=== PATIENT | male | born 1970 | race Caucasian/White ===

== ENCOUNTER 2017-09-29 18:24 | Inpatient (IN) | payer OTHER ==
[~2017-09-29] VITALS: Ht 175.3 cm; Wt 88.0 kg
--- NOTE | 2017-09-29 20:40 | NUR ---
Pre-Assessment Note Pre-Assessment completed on the first floor, in intake office. Pt is a 46 year old male admitting to [facility] for ETOH and Opiate withdrawal. During assessment in intake, pt appears anxious, flushed with clammy skin. VS: BP 142/90, Pulse 127, resp 17, SpO2 96% RA, temp 98. Pt denies chest pain. Pt educated on unit rules and policies: VS taken Q4H, kitchen only to be accessed via staff members and smoking privileges granted by nurse only. Pt also educated that any controlled substance brought upon admission will be wasted and not returned to pt upon discharge. Pt verbalized understanding of education. Admission process to be continued upon arrival to the unit.
[2017-09-29 20:49] VITALS: BP 142/90
--- NOTE | 2017-09-29 20:50 | NUR ---
Admission note Pt is a 46 yo male, A+Ox4, presenting to [facility] for ETOH/Opiate withdrawal. Pt has NKA, is on Full code status, and on Regular diet. Pt is 5'9" in height and 194 LBS. in weight. Pt has medical HX of Heart murmur (childhood) and Left ankle SX (1999). Pt has no Seizure, overdose, cardiac complications, nor delirium HX. Pt has no HX of Psychiatric condition/holds. Pt has no HX of SI/SA/HI. Pt has family HX of Arthritis from Mother, CVA and alcoholism from Father, ADHD from 16 yo son, and Asthma and ADHD from 14 yo son. Pt has no primary care provider. Pt has been drinking alcohol for 31 years (7 years currently), has reached a level of 0.5L-1L Vodka/daily, and last drink was "4 vodka drinks" on 09-29-17 @1930. Pt has been taking [place] 5/325 PO for 2 years, has reached a level of 4 tabs/daily, and last dose was 1 tab on 09-26-17. Pt states, "My typical withdrawal symptoms are n/v/d, tremors, anxiety, agitation, and body aches. Pt is not taking any home medications. Pt has no HX of previous detox/rehab. Pt's last time sober was from 03/2009-09/2010. This was the patient's last time sober. Pt states, "This time i am going to get sober and stay that way, i don't need this in my life anymore." Pt has never been a cigarette smoker. Pt appears intoxicated but in stable condition. Pt is flush in face with moisture noted on forehead. Pt has a scent of alcohol exuding from body. Pt is well groomed and clothing is kept well. Pt is cooperative and compliant with a very cheerful attitude (possibly due to intoxication). Pt states, "I need to stop drinking and my main motivations are my kids." Pt states, "at this point i drink because i am used to it after so many years." Pt states, "After my ex told me that she was going to divorce me, i started drinking with no remorse." Pt considers his parents to be his support system. Pt recalls only consequences being that he got a DUI when he was 19. V/S WNL. B/P=142/90 NN=397 O2= 96% RR= 17 T=98.0. Respirations even and unlabored. Will continue to monitor.
[2017-09-29] MEDS ORDERED: CLONIDINE HCL 0.1 MG TABLET PO PRN (21:00)
[2017-09-29] MEDS ORDERED: IBUPROFEN 600 MG TABLET PO PRN (21:00)
[2017-09-29] MEDS ORDERED: LORAZEPAM 2 MG/1 ML VIAL IM PRN (21:00)
[2017-09-29] MEDS ORDERED: MIRALAX 17 GM POWD.PACK PO PRN (21:00)
[2017-09-29] MEDS ORDERED: MAG HYDROX/AL HYDROX/SIMETH 30 ML LIQUID UDC PO PRN (21:00)
[2017-09-29] MEDS ORDERED: LOPERAMIDE HCL 2 MG CAPSULE PO PRN ×2 (21:00)
[2017-09-29] MEDS ORDERED: ACETAMINOPHEN 325 MG TABLET PO PRN (21:00)
[2017-09-29] MEDS ORDERED: LORAZEPAM 1 MG TABLET PO PRN ×2 (21:00)
[2017-09-29] MEDS ORDERED: MAGNESIUM HYDROXIDE 30 ML LIQUID UDC PO PRN (21:00)
[2017-09-29] MEDS ORDERED: ONDANSETRON 4 MG/2 ML VIAL IM PRN (21:00)
[2017-09-29] MEDS ORDERED: ONDANSETRON ODT 4 MG TAB.RAPDIS SL PRN (21:00)
[2017-09-29] MEDS ORDERED: DICYCLOMINE HCL 20 MG TABLET PO PRN (21:00)
[2017-09-29] MEDS ORDERED: METHOCARBAMOL 750 MG TABLET PO PRN (21:00)
[2017-09-29 21:33] LABS: BASOPHILS # (AUTO) 0.1 K/uL (0.0-8.0); BASOPHILS % (AUTO) 1.3 % (0.0-2.0); EOSINOPHILS # (AUTO) 0.1 K/uL (0.0-0.7); EOSINOPHILS % (AUTO) 1.9 % (0.0-7.0); HEMATOCRIT 49.4 % (36.7-47.1); HEMOGLOBIN 16.9 g/dL (12.5-16.3); LYMPHOCYTES # (AUTO) 1.9 K/uL (20.0-40.0); LYMPHOCYTES % (AUTO) 26.2 % (20.5-51.5); MEAN CORPUSCULAR HEMOGLOBIN 31.8 uug (23.8-33.4); MEAN CORPUSCULAR HGB CONC 34 g/dL (32.5-36.3); MEAN CORPUSCULAR VOLUME 92.9 fL (73.0-96.2); MONOCYTES # (AUTO) 0.9 K/uL (2.0-10.0); MONOCYTES % (AUTO) 11.9 % (0.0-11.0); NEUTROPHILS # (AUTO) 4.2 K/uL (1.8-8.9); NEUTROPHILS % (AUTO) 58.7 % (38.5-71.5); PLATELET COUNT (AUTO) 188 K/uL (152-348); RED BLOOD CELL COUNT(AUTO) 5.31 MIL/uL (4.06-5.63); WHITE BLOOD COUNT (AUTO) 7.2 K/uL (3.6-10.2)
[2017-09-29 21:35] LABS: BILIRUBIN,TOTAL 0.3 mg/dL (0.2-1.0); CREATININE 1.1 mg/dL (0.6-1.3); MAGNESIUM 2.1 mg/dL (1.8-2.4); POTASSIUM 4.6 mmol/L (3.5-5.1); TOTAL PROTEIN, SERUM 8.1 g/dL (6.4-8.2)
[2017-09-29 21:48] LABS: *AMPHETAMINE, URINE NEGATIVE (NEGATIVE); *BARBITURATE, URINE NEGATIVE (NEGATIVE); *CANNABINOID, URINE NEGATIVE (NEGATIVE); *COCCAINE, URINE POSITIVE (NEGATIVE); *OPIATE, URINE NEGATIVE (NEGATIVE); *PHENCYCLIDINE SCREEN,URINE NEGATIVE (NEGATIVE)
[2017-09-29 21:57] LABS: THYROID STIMULATING HORMONE 5.193 mIU/mL (0.358-3.740)
[2017-09-29] MEDS ORDERED: THIAMINE HCL 200 MG/2 ML VIAL IM ONE (23:00)
[2017-09-30 00:24] VITALS: BP 137/84
[2017-09-30 04:17] VITALS: BP 124/79
--- NOTE | 2017-09-30 07:00 | NUR ---
End of shift note Newly admitted patient. Pt was continuously noted with anxiety, agitation, and restlessness. Pt remained in room for majority of shift except to get food from kitchen. Pt remained compliant and cooperative with all aspects of treatment. Pt was not given any PRN medications during shift. Pt is on 5 day Ativan taper to start today. Pt slept for a total of 7 HRS. Last COWS: 6 and Last CIWA: 6 @0400. Respirations even and unlabored. Will endorse to day shift nurse.
--- NOTE | 2017-09-30 07:08 | NUR ---
PRN Subutex 4mg SL for COWS 18, anxiety, agitation, irritability, enlarged pupils, gross tremors, and diaphoresis. Call light within reach. Addendum: 09/30/17 at 1718 by FCO GEORGE RN wrong time
--- NOTE | 2017-09-30 07:40 | NUR ---
START OF SHIFT & PRN Clonidine 0.1mg PO Endorse rcvd from ongoing nurse, client is in bed, he is a/o x 4, he is shirtless, due to diaphoresis overnight, he presents with anxious, agitated mood, he appears restless, inability to stay still, gross tremors, flash face, clammy skin, dry lips, and difficulty concentrating. Client reports feeling very nervous, "Like I have to stay alert at all times." headache, restless legs, insomnia, stomach cramps, no appetite, cold and hot sweats, and tiredness. Encourage client to increase PO fluid to facilitated detox and rehydration. Encourage client to attend group therapy to learn skills to maintain sober. Clonidine 0.1mg PO administered for increased BP 161/112. Last CIWA 6 @ 0400. Client slept 7 hrs. Seizure precautions rendered. Call light within reach.
[2017-09-30 08:02] VITALS: BP 161/112
[2017-09-30] MEDS: LORAZEPAM 1 MG TABLET PO SCH ×4 (08:24→21:46)
[2017-09-30] MEDS: FOLIC ACID 1 MG TABLET PO SCH (08:24)
[2017-09-30] MEDS: MULTIVITAMINS,THERAPEUTIC TABLET PO SCH (08:24)
[2017-09-30] MEDS: THIAMINE HCL 100 MG TABLET PO SCH (08:24)
--- NOTE | 2017-09-30 08:24 | NUR ---
PPD Test administered to L forearm.
--- NOTE | 2017-09-30 08:40 | NUR ---
Reassess PRN Clonidine 0.1mg PO, BP 147/94. Client presents with anxiety, agitation, dilated pupils, sweats, COWS 14, client decline PRN Subutex at this time, stating, "I am not ready for it, I know I will get a lot worse." Risk/benefits discuss with client, reinforcement needed. Call light within reach.
[2017-09-30] MEDS ORDERED: TUBERCULIN,PURIF.PROT.DERIV. 5 TU/0.1 ML TEST ID ONE (09:00)
[2017-09-30] MEDS ORDERED: 5 DAY TAPER OF LORAZEPAM -SERENITY PROTOCOL PO PRN (09:00)
[2017-09-30] MEDS ORDERED: 3 DAY TAPER BUPRENORPHINE -SERENITY PROTOCOL SL PRN (12:45)
[2017-09-30 12:48] VITALS: BP 162/106
[2017-09-30] MEDS: HYDROXYZINE PAMOATE 25 MG CAPSULE PO PRN (12:51)
[2017-09-30] MEDS: BUPRENORPHINE HCL 2 MG TAB.SUBL SL PRN ×2 (12:51→17:08)
--- NOTE | 2017-09-30 12:51 | NUR ---
PRN Subutex 4mg SL, Clonidine 0.1mg PO for COWS 20, anxiety, agitation, irritability, gross tremors, diaphoresis, and increased BP 162/106. Call light within reach.
[2017-09-30] MEDS: CLONIDINE HCL 0.1 MG TABLET PO PRN (13:16)
--- NOTE | 2017-09-30 13:21 | NUR ---
Reassess PRN Subutex 4mg SL, client continues to present with anxiety, agitation, irritability, gross tremors, and diaphoresis, COWS 15. Call light within reach.
--- NOTE | 2017-09-30 13:51 | NUR ---
Reassess PRN Clonidine 0.1mg BP 142/96. Call light within reach.
[2017-09-30 16:55] VITALS: BP 124/89
--- NOTE | 2017-09-30 17:08 | NUR ---
PRN Subutex 4mg SL for COWS 18, anxiety, agitation, irritability, enlarged pupils, gross tremors, and diaphoresis. Call light within reach.
--- NOTE | 2017-09-30 17:38 | NUR ---
Reassess PRN Subutex 4mg SL for COWS 14, client continues to presents with anxiety, agitation, irritability, enlarged pupils, gross tremors, and diaphoresis. Call light within reach.
--- NOTE | 2017-09-30 19:06 | NUR ---
END OF SHIFT Endorse client to incoming nurse, client is in group, he is a/o x 4. Client continues to presents with anxious mood, gross tremors, diaphoresis, flushed face, clammy skin, dry lips, decreased appetite, and difficulty concentrating. PRN administered and noted per protocol. Last CIWA 20 @ 1700 COWS 14 @ 1730. Adequate PO fluid intake 1950mL, void x 3, stool x 3. Client is compliant with group therapy. Call light within reach.
[2017-09-30 20:00] VITALS: BP 130/92
--- NOTE | 2017-09-30 20:00 | NUR ---
Start of Shift Patient noted to be restless, looking flushed, sweaty, and cannot sit still. Patient is sweaty, anxious with tremors and easily gets distracted. Patient c/o restless legs, fatigue and verbalized, I just dont want to move. Educated patient regarding his medications and non-pharmacological ways to relax. Patient is disheveled. odorous and encouraged patient to take a shower. Fall, universal, seizure and safety prec in place. Call light within reach. Latest COWS=12, CIWA=15. Will continue to monitor.
[2017-09-30] MEDS ORDERED: BUPRENORPHINE HCL 2 MG TAB.SUBL SL ONE (21:00)
[2017-10-01] VITALS: BP 126/74
[2017-10-01 04:00] VITALS: BP 130/87
[2017-10-01 05:09] LABS: HEPATITIS B SURFACE AG Negative (Negative)
--- NOTE | 2017-10-01 07:08 | NUR ---
End of Shift Patient continues to be anxious and is flushed. With tremors noted. Patient verbalized being able to sleep better during the shift. Patient is still disheveled, odorous and verbalized that he will take the shower this morning. Encouraged patient to increase oral fluid intake. Fall, universal, seizure and safety prec in place. Call light within reach. Latest COWS=10, CIWA=11, slept for 7 hours. Endorsed to AM shift nurse for continuity of care.
--- NOTE | 2017-10-01 07:30 | NUR ---
START OF SHIFT Client is laying in bed in a position, a/o x 4, client presents with anxious mood, flat affect, flushed face, obvious sweat on forehead and upper lip, goosebump, enlarged pupils, gross tremors, and difficulty concentrating. Client reports feeling somewhat rested after he woke up in the middle of the night disoriented and with a sense of panic, sweaty, shaking, headache, nausea, decreased appetite, abdominal cramps, and fatigue. Encourage client to increase PO fluid to facilitated detox and rehydration. Encourage client to participate in group therapy. Last [facility] 10 @ 0400. Client slept 7 hrs. Seizure precautions rendered. Call light within reach.
[2017-10-01 07:43] LABS: BILIRUBIN,TOTAL 0.5 mg/dL (0.2-1.0); POTASSIUM 3.8 mmol/L (3.5-5.1); TOTAL PROTEIN, SERUM 6.3 g/dL (6.4-8.2)
[2017-10-01 07:52] LABS: THYROID STIMULATING HORMONE 10.784 mIU/mL (0.358-3.740)
[2017-10-01 08:35] VITALS: BP 134/86
[2017-10-01] MEDS: MULTIVITAMINS,THERAPEUTIC TABLET PO SCH (08:40)
[2017-10-01] MEDS: THIAMINE HCL 100 MG TABLET PO SCH (08:40)
[2017-10-01] MEDS: FOLIC ACID 1 MG TABLET PO SCH (08:40)
[2017-10-01] MEDS: LORAZEPAM 1 MG TABLET PO SCH ×3 (08:40→21:37)
[2017-10-01] MEDS: CLONIDINE HCL 0.1 MG TABLET PO PRN ×2 (08:46→12:49)
--- NOTE | 2017-10-01 08:46 | NUR ---
PRN Clonidine 0.1mg PO for increased BP 134/86. Call light within reach.
[2017-10-01] MEDS ORDERED: BUPRENORPHINE HCL 2 MG TAB.SUBL SL ONE ×3 (09:00→21:00)
--- NOTE | 2017-10-01 09:46 | NUR ---
Reassess PRN Clonidine 0.1mg BP 127/82. Call light within reach.
[2017-10-01 12:37] VITALS: BP 126/89
[2017-10-01] MEDS: HYDROXYZINE PAMOATE 25 MG CAPSULE PO PRN (12:49)
--- NOTE | 2017-10-01 12:49 | NUR ---
PRN Clonidine 0.1mg PO, Vistaril 25mg PO for generalized body aches 5/10 and anxiety mb increased P 102, inability to stay still. Call light within reach.
--- NOTE | 2017-10-01 13:49 | NUR ---
Reassess PRN Clonidine 0.1mg & Vistaril 25mg, he verbalizes slight relief from generalized body aches /, client continues to present with anxious mood, P 89. Call light within reach.
[2017-10-01 16:55] VITALS: BP 136/81
[2017-10-01] MEDS ORDERED: METHOCARBAMOL 500 MG TABLET PO PRN (18:30)
--- NOTE | 2017-10-01 19:08 | NUR ---
END OF SHIFT Client in in room, a/o x 4, client continues to presents with anxious mood, flat affect, flushed face, clammy skin, enlarged pupils, gross tremors, and difficulty concentrating. PRN's administered and noted per protocol. Adequate PO fluid intake 2110mL, void x 4, stool x 1. Client consumes 50-75% of meals. Client is compliant with 2/3 of group therapy. Last CIWA 16 @ 1700. Seizure precautions rendered. Call light within reach.
[2017-10-01 20:00] VITALS: BP 135/83
--- NOTE | 2017-10-01 20:00 | NUR ---
Start of Shift Patient appears anxious, with flat affect and with sweating on the forehead. Patient verbalized that he has difficulty concentrating and easily gets distracted. Patient is sweaty, anxious with tremors and easily gets distracted. Patient c/o restless legs, fatigue and intermittent nausea. Patient is disheveled. odorous and encouraged patient to take a shower again. Fall, universal, seizure and safety prec in place. Call light within reach. Latest COWS=13, CIWA=13. Will continue to monitor.
[2017-10-02] VITALS (7 sets, daily range): BP systolic 122–143; BP diastolic 76–96
[2017-10-02] MEDS: LEVOTHYROXINE SODIUM 25 MCG TABLET PO SCH (06:22)
--- NOTE | 2017-10-02 07:07 | NUR ---
End of Shift Patient still noted with restless legs, fatigue and intermittent nausea. Patient is disheveled, observed to be flushed. Patient continues to have gross tremors. Fall, universal, seizure and safety prec in place. Call light within reach. Latest COWS=13, CIWA=12, slept for 4 hours. Endorsed to AM shift nurse for continuity of care.
--- NOTE | 2017-10-02 07:30 | NUR ---
Start of shift Patient 46 y/o male admitted for medically supervised withdrawal of ETOH and opiates. Last COWS 13 and CIWA 12 at 2400. Pt on a 5 day Ativan and 4 day Subutex taper. Tolerating well. Pt anxious ab out discharge day and financial burden of admission. TB test read and is negative. Pt presents with moderate anxiety, mild agitation, gross tremors, restless, flushed face, sweating and chills, generalized body aches and pains. Pt has flat affect and depress mood. Encouraged pt to attend group therapies/sessions to learn new coping skills to prevent relapse. Pt reports NKA, FULL CODE. All safety precautions in place. Call light within reach. Bed lowest lock position. Fall precautions. Will continue to monitor for withdrawal symptoms.
--- NOTE | 2017-10-02 08:00 | NUR ---
COWS 12, CIWA 13. PT presents with flushed face and body, sweats, chills, moderate observable anxiousness, minimal generalized body aches, nasal stuffiness, fine tremors, and yawning.
--- NOTE | 2017-10-02 08:16 | NUR ---
TB test assessment negative on left forearm.
[2017-10-02] MEDS: LORAZEPAM 1 MG TABLET PO SCH ×4 (08:57→21:14)
[2017-10-02] MEDS: MULTIVITAMINS,THERAPEUTIC TABLET PO SCH (08:57)
[2017-10-02] MEDS: THIAMINE HCL 100 MG TABLET PO SCH (08:57)
[2017-10-02] MEDS: FOLIC ACID 1 MG TABLET PO SCH (08:57)
[2017-10-02] MEDS: CLONIDINE HCL 0.1 MG TABLET PO PRN ×2 (08:58→23:26)
[2017-10-02] MEDS ORDERED: BUPRENORPHINE HCL 2 MG TAB.SUBL SL ONE (09:00)
--- NOTE | 2017-10-02 09:01 | NUR ---
PRN CLONIDINE 0.1 MG PO FOR BP 143/93, HR 86
--- NOTE | 2017-10-02 10:02 | NUR ---
REASSESS CLONIDINE- BP IMPROVED 129/88. HR 81. MEDICATION EFFECTIVE.
--- NOTE | 2017-10-02 12:00 | NUR ---
COWS 13, CIWA 16. PT presents with flushed face and body, sweats, chills, moderate observable anxiousness, minimal generalized body aches, nasal stuffiness, fine tremors, and yawning
--- NOTE | 2017-10-02 16:00 | NUR ---
COWS 15, CIWA 17. PT presents with flushed face and body, sweats, chills, moderate observable anxiousness, minimal generalized body aches, nasal stuffiness, gross tremors, and yawning.
--- NOTE | 2017-10-02 17:40 | NUR ---
Client was prompted by therapist to attend daily group therapy sessions. Client related that he would attend the next group.
--- NOTE | 2017-10-02 18:32 | NUR ---
End of shift Patient 46 y/o male admitted for medically supervised withdrawal of ETOH and opiates. Pt on a 5 day Ativan and 4 day Subutex taper and tolerating well. Last COWS 15, CIWA 17. Pt continues to have moderate anxiety, mild agitation, gross tremors, restless, flushed face, sweating and chills, generalized body aches and pains. Pt has flat affect and depress mood throughout the day. PRN given today was Clonidine. Encouraged pt to attend group therapies/sessions to learn new coping skills to prevent relapse. Pt participated in two group therapy sessions today. PO fluids 2883 ml, voids x 5, BM x 2.Pt reports NKA, FULL CODE. All safety precautions in place. Call light within reach. Bed lowest lock position. Fall precautions. Will continue to monitor for withdrawal symptoms. Endorsed to PM shift.
--- NOTE | 2017-10-02 19:43 | NUR ---
START OF SHIFT NOTE Rcvd report from outgoing nurse, pt is currently in his room. Pt is a 46 y/o male A/O to person, place, time, and purpose. Pt was admitted for medically supervised withdrawal from ETOH and Opaites. Pt is not c/o any s/s of withdrawal. Pt is presenting w/ anxiety, gross tremors, flat affect, and sweats. Pt denies any S/I and H/I. PRN Clonidine given for elevated BP, noted effective. Last CIWA 15 and COWS 17 @ 1600. Call light is within reach. Pt will continue to be monitored and needs met.
--- NOTE | 2017-10-02 20:00 | NUR ---
CIWA AND COWS ASSESSMENT CIWA score 16 and COWS score 14. Pt presents w/ anxiety, gross tremors, cramps, body aches, runny nose, restlessness, sweats, hot flashes, and flushing.
[2017-10-02] MEDS: diphenhydrAMINE 50 MG CAPSULE PO PRN (23:25)
--- NOTE | 2017-10-02 23:25 | NUR ---
PRN BENADRYL AND CLONIDINE ADMINISTRATION Benadryl 50mg and Clonidine 0.1mg given for insomnia and anxiety. BP 132/88. CIWA 16. Will reasses pt in 1 hr.
--- NOTE | 2017-10-03 | NUR ---
CIWA AND COWS DEFERRED AND V/S REFUSED Pt is in bed w/ his eyes closed. Pt's respirations are unlabored and even.
--- NOTE | 2017-10-03 00:25 | NUR ---
PRN BENADRYL AND CLONIDINE REASSESSMENT Pt is in bed w/ his eyes closed. Pt's respirations are unlabored and even.
--- NOTE | 2017-10-03 02:52 | NUR ---
MD Communication Attempt: Pt noted with visual and auditory hallucinations. CIWA 23. Pt stated that he could see his "son skating with his friends outside downstairs" and he could "hear a radio in his bathroom". Pt able to be redirected. Attempted to contact on-call MD hotline but no response. Left message and will attempt to call again. Pt in safe condition at this time. Pt placed on frequent checks for observation.
--- NOTE | 2017-10-03 03:23 | NUR ---
MD Communication Attempt: Attempted to contact on-call MD for a second time but not response. Called direct number for on-call MD and left a message. Pt remains in safe condition. Pt currently in bed still awake. Frequent checks being observed.
[2017-10-03] MEDS: CLONIDINE HCL 0.1 MG TABLET PO PRN ×5 (03:44→22:58)
[2017-10-03] MEDS: HYDROXYZINE PAMOATE 25 MG CAPSULE PO PRN ×2 (03:44→17:32)
--- NOTE | 2017-10-03 03:44 | NUR ---
PRN CLONIDINE AND VISTARIL ADMINISTRATION Clonidine 0.1mg given for increased anxiety and sweats. Vistaril 25mg given for increased anxiety. CIWA 21. Will reassess pt in 1 hr.
--- NOTE | 2017-10-03 04:05 | NUR ---
CIWA AND COWS ASSESSMENT CIWA score 23 and COWS score 12. Pt is presenting w/ auditory and visual hallucinations, f tremors, axiety, restlessness, sweats, and body aches.
--- NOTE | 2017-10-03 04:43 | NUR ---
MD Communication: Received callback from . New order for 2mg Ativan PO ONE TIME for increased withdrawal symptoms. May repeat x1 after 2 hours. New orders noted and carried out.
--- NOTE | 2017-10-03 04:44 | NUR ---
PRN CLONIDINE AND VISTARIL REASSESSMENT Pt is awake in bed. CIWA 23. Medication noted ineffective.
[2017-10-03] MEDS ORDERED: LORAZEPAM 1 MG TABLET PO ONE ×2 (04:45→07:00)
--- NOTE | 2017-10-03 07:19 | NUR ---
END OF SHIFT NOTE Rcvd report from outgoing nurse, pt is currently in his room. Pt is a 46 y/o male A/O to person, place, time, and purpose. Pt was admitted for medically supervised withdrawal from ETOH and Opaites. Pt is not c/o any s/s of withdrawal. Pt is presenting w/ anxiety, gross tremors, flat afffect, and sweats. Pt during the night began to have auditory and visual hallucinations. Pt was easily oriented and is aware he is having the hallucinations. PRN Clonidine 0.1mg, and Benadryl 50mg given for insomnia, noted ineffective. PRN Clonidine 0.1mg and Vistaril 25mg given for insomnia, noted ineffective. MD ordered a 1 time does of Ativan 2mg, noted Pt's fluid intake was 1000 ml and he voided 3 times. Pt slept for 3 hrs. Last CIWA 23 and COWS 12 @ 0330. Call light is within reach.
[2017-10-03] MEDS: LEVOTHYROXINE SODIUM 25 MCG TABLET PO SCH (07:26)
--- NOTE | 2017-10-03 07:45 | NUR ---
START OF SHIFT Client is in bed, a/o x 4, client presents with anxious mood, flat affect, flushed face, clammy skin, goosebump, enlarged pupils, gross tremors, and difficulty concentrating. Client reports denies any hallucinations, but recalls having them at night, he though he saw his son outside on the street playing with his skateboard, and he heard music coming out from the side rails. He also reports sweats, shaking, headache, nausea, decreased appetite, abdominal cramps, and fatigue. Encourage client to increase PO fluid to facilitated detox and rehydration. Encourage client to participate in group therapy. Last [facility] 102@ 0400. Client slept 3 hrs. Seizure precautions rendered. Call light within reach. Addendum: 10/03/17 at 1816 by FCO GEORGE RN [place] [id number]
--- NOTE | 2017-10-03 08:00 | NUR ---
COWS 18/CIWA 19 client presents with inability to stay still, fidgety, voice breaks/cracks, intermittent nausea, gross tremors, flushed face, wringing hands, anxiety, agitation, difficulty concentrating, runny nose, sweats, pins and needle feeling on BLE, client is a/o x 4. Client prefers to go down to the patio to smoke a cigarette, before taking his 0900 am medications. Will administered schedule Ativan 1mg PO as soon as he returns back to the unit.
[2017-10-03 08:02] VITALS: BP 132/83
[2017-10-03] MEDS: THIAMINE HCL 100 MG TABLET PO SCH (08:33)
[2017-10-03] MEDS: FOLIC ACID 1 MG TABLET PO SCH (08:33)
[2017-10-03] MEDS: MULTIVITAMINS,THERAPEUTIC TABLET PO SCH (08:33)
[2017-10-03] MEDS: LORAZEPAM 1 MG TABLET PO SCH ×3 (08:34→21:00)
--- NOTE | 2017-10-03 08:34 | NUR ---
PRN Clonidine 0.1mg PO administered for generalized body pain 08/05. call light within reach.
[2017-10-03] MEDS ORDERED: CLONIDINE HCL 0.1 MG TABLET PO ONE (09:30)
--- NOTE | 2017-10-03 09:30 | NUR ---
Nursing Note Client presents with anxious mood, restlessness, agitation, he is having visual hallucinations, he stated, "Do you see the waterfall, the beautiful array of colors, and the pink look, look, right here at the door, do you see it?" Redirect client to reality, help client to verbalize feeling and symptoms, using a calm, acceptance, and active listening. Dr. Chandra is at bedside with client. Call light within reach.
--- NOTE | 2017-10-03 09:34 | NUR ---
Reassess PRN Clonidine 0.1mg, client reports relief from generalized body pain 0/10. call light within reach.
--- NOTE | 2017-10-03 09:35 | NUR ---
One time Clonidine 0.1mg PO administered for anxiety, agitation, increased BP 170/107. Call light within reach.
--- NOTE | 2017-10-03 09:40 | NUR ---
MD Notifications Client is on a 1:1 sitter promoting safety d/t visual hallucinations, client verbalized understanding.
--- NOTE | 2017-10-03 10:35 | NUR ---
Reassess One time Clonidine 0.1mg, client continue to present with anxiety, agitation, BP 161/95. 1:1 sitter at bedside. Call light within reach. Dr. Chandra notified.
--- NOTE | 2017-10-03 10:58 | NUR ---
MD Notification Dr. Chandra made aware of client having visual hallucinations, CIWA 18, increase BP 191/95. She stated, "Please give Ativan 2mg and continue to monitor."
[2017-10-03] MEDS: LORAZEPAM 1 MG TABLET PO PRN ×2 (11:00→16:17)
[2017-10-03] MEDS ORDERED: LORAZEPAM 1 MG TABLET PO PRN (11:00)
--- NOTE | 2017-10-03 11:00 | NUR ---
PRN Ativan 2mg PO administered for CIWA 18 client continues to present with visual hallucinations, he sees pink color splattered on in bedroom door, he saw his room shake and objects move because of an earthquake, he is fidgety, gross tremors, flushed face, rapid and shaky speech, anxiety, agitation, increased BP 161/95, P 88. Client continues on 1:1 sitter for safety. Call light within reach.
[2017-10-03 12:16] VITALS: BP 111/79
--- NOTE | 2017-10-03 12:17 | NUR ---
Reassess PRN Ativan 2mg After group therapy, client requested to go to the outside patio for fresh air. CIWA 20 client continues to present with anxious mood, restlessness, inability to stay still, gross tremors, flushed face, clammy skin, and difficulty concentrating. He denies any visual hallucinations at this time. BP117/79, P 83. Client continues on 1:1 sitter for safety. Call light within reach.
[2017-10-03] MEDS: QUETIAPINE FUMARATE 25 MG TABLET PO PRN ×3 (13:03→20:43)
--- NOTE | 2017-10-03 13:03 | NUR ---
PRN Seroquel 25mg Po administered for psychosis/agitation. Client believes that we have him against his will, redirect client to reality. Will continue to monitor. 1:1 sitter at bedside. Call light within reach.
--- NOTE | 2017-10-03 14:03 | NUR ---
Reassess PRN Seroquel 25mg, client continues to presents with agitation, restlessness, and anxiety, he stated, "I know why I'm here, but please do not hurt me, I know you want to sedate me to cut me." Vitals T 98.2, P 88, BP 138/87, R 18, spO2 @ 99% on RA, pain 0/10. Will continue to monitor. 1:1 sitter at bedside. Call light within reach.
--- NOTE | 2017-10-03 14:20 | NUR ---
MD Notification Dr. Gerber notified of client having a psychotic episode, client told primary nurse, "You are going to cut me aren't you? What procedure are you doing on me? Why can't I just leave and then I can come back tomorrow? Please, nobody knows where I am, and I know you are trying to do something to me. My phone is in the tower and I can not get my wallet." Dr. Gerber gave verbal order of one time Zyprexa 5mg IM for psychosis to CN.
[2017-10-03] MEDS ORDERED: OLANZAPINE 10 MG VIAL IM ONE (14:30)
--- NOTE | 2017-10-03 14:41 | NUR ---
One time Zypreza 5mg IM administered for psychosis, m/b frenzied speaking, restlessness, anxiety, agitation, visual hallucinations, gross tremors. 1:1sitter at bedside. Call light within reach. Will continue to monitor.
--- NOTE | 2017-10-03 15:41 | NUR ---
Reassess One time Zypreza 5mg, client continues to exhibits symptoms of frenzied speaking, restlessness, anxiety, agitation, visual hallucinations, gross tremors. 1:1sitter at bedside. Call light within reach. Will continue to monitor. Dr. Gerber and Dr. Chandra notified, waiting for call back.
[2017-10-03] MEDS ORDERED: QUETIAPINE FUMARATE 25 MG TABLET PO ONE (16:00)
[2017-10-03 16:12] VITALS: BP 174/103
--- NOTE | 2017-10-03 16:17 | NUR ---
PRN Ativan 2mg PO administered for CIWA 23, agitation, restlessness, anxiety, gross tremors, clammy skin, difficulty concentrating, and visual hallucinations. One time Seroquel 50mg for delusion/paranoia. Call light within reach. 1:1 sitter at bedside. Will continue to monitor.
--- NOTE | 2017-10-03 17:17 | NUR ---
Reassess PRN Ativan 2mg CIWA 23, client continues to presents with agitation, restlessness, anxiety, gross tremors, clammy skin, difficulty concentrating, and visual hallucinations. One time Seroquel 50mg, no significant improvement, client continues to present with delusion/paranoia. Call light within reach. 1:1 sitter at bedside. Will continue to monitor. CN notified Dr. Gerber to administer one time Benadryl 25mg PO for sleep, PRN seroquel 25mg PO for psychosis/agitation.
[2017-10-03] MEDS ORDERED: diphenhydrAMINE 25 MG CAP PO PRN (17:30)
--- NOTE | 2017-10-03 17:30 | NUR ---
Client is ambulating on the hallway, he believes there are secret passages, and that his dad is in room 308 having a heart attack. Redirect client to his room, and to reality, using a calm voice. Client back in room with 1:1 sitter. Will continue to monitor.
--- NOTE | 2017-10-03 17:32 | NUR ---
One time Benadryl 25mg PO for sleep, PRN Seroquel 25mg PO for psychosis/agitation, client states, "I see my ex- and my three sisters, can you please tell them to go now, please." PRN Clonidine 0.1mg PO for BP 168/99, Vistaril 25mg PO for anxiety. 1:1 sitter at bedside. Call light within reach. Will continue to monitor.
--- NOTE | 2017-10-03 18:32 | NUR ---
Reassess One time Benadryl 25mg, PRN Seroquel 25mg, PRN Clonidine 0.1mg, Vistaril 25mg. Client is lying in bed, eyes closed, easily startled, VS T 98.3, BP 149/89, P 89, RR 16, spO2 @ 97% on room air, denies any pain, client is a/o to name and date. 1:1 sitter at bedside. Call light within reach. Will continue to monitor.
--- NOTE | 2017-10-03 19:00 | NUR ---
MD Communication Pt continues to be confused and disoriented with hallucinations and delusions. MD contacted. Orders for Valium 10mg one time and to hold 2100 Ativan. Contact MD for any further orders. Remains on 1:1 for safety.
[2017-10-03] MEDS ORDERED: DIAZEPAM 10 MG TABLET PO ONE ×3 (19:15→23:00)
--- NOTE | 2017-10-03 19:15 | NUR ---
END OF SHIFT Endorse client to incoming nurse, client is a/o to name, client continues to present with visual hallucinations, agitation, anxiety, restlessness, gross tremors, flushed face, clammy skin, difficulty concentrating, starting to manifest difficulty with being redirected. 1:1 sitter at bedside for safety. PRN and one time dose of medications administered and noted per protocol. Last COWS 15/CIWA 23 @ 1700. Seizure precautions in place. call light within reach.
--- NOTE | 2017-10-03 19:53 | NUR ---
START OF SHIFT NOTE Rcvd report from outgoing nurse, pt is in his room. Pt is a 46 y/o male A/O to person only. Pt was admitted for medically supervised withdrawal from ETOH and Opiates. Pt was placed on 1:1 observation for safety @ 0935. Pt is experiencing severe auditory and visual hallucinations. Pt is presenting w/ sweats, gross tremors, flushing, and hot flashes. PRN Clonidine 0.1mg given @ 0834 and 0934 for elevated BP (170/107), noted effective. PRN Ativan 2mg given @ 1100 for CIWA 18, noted ineffective. PRN Seroquel 25mg given @ 1303 for psychosis, noted ineffective. PRN Zyprexa 5mg IM given @ 1441, noted ineffective. PRN Benadryl 50mg, Seroquel 25mg, Vistaril 25mg, and Clonidine 0.1mg given @ 1617 for pain, sleep, psychosis, and anxiety/agitation, noted ineffective. Last CIWA 23 and COWS 15 @ 1617. Pt will continue to be monitored and needs met.
[2017-10-03 20:00] VITALS: BP 149/100
--- NOTE | 2017-10-03 20:00 | NUR ---
CIWA AND COWS ASSESSMENT CIWA 37 and COWS 19. Pt is presenting with continuous auditory and visual hallucinations, gross tremors, sweats, agitation, and anxiety.
--- NOTE | 2017-10-03 20:31 | NUR ---
Psychiatrist and MD Communication: Pt still experiencing severe auditory and visual hallucinations. Psychiatrist notified with new order to change 25mg Seroquel PO Q4HPRN to 50mg Seroquel PO Q4HPRN. MD made aware of pt condition. New order per MD for 10mg Valium PO ONE TIME now and to give a dose of 50mg Seroquel PO Q4HPRN now. Orders noted and carried out.
--- NOTE | 2017-10-03 20:43 | NUR ---
PRN SEROQUEL ADMINISTRATION Seroquel 50mg given for agitation and psychosis. CIWA 37. Will reassess pt in 1 hr.
--- NOTE | 2017-10-03 20:45 | NUR ---
ONE TIME ADMINISTRATION VALIUM Valium 10mg given for severe withdrawal symptoms, CIWA 37. Will continue to monitor pt.
--- NOTE | 2017-10-03 21:43 | NUR ---
PRN SEROQUEL REASSESSMENT Pt is still continuing to experience psychosis, through auditory and visual hallucinations. Pt is agitated. Will continue to monitor pt.
--- NOTE | 2017-10-03 22:34 | NUR ---
MD Communication: No change in current pt condition. Pt still experiencing severe hallucinations. MD made aware. New additional order for 10mg Valium PO to be given at 2300 and another 10mg Valium PO to be given at 0200. MD ordered to give doses of 50mg Seroquel PO Q4HPRN at 0000 and 0400. Orders noted and carried out.
[2017-10-03] MEDS: diphenhydrAMINE 50 MG CAPSULE PO PRN (22:55)
--- NOTE | 2017-10-03 22:55 | NUR ---
ONE TIME VALIUM ADMINISTRATION Valium 10mg given per MD order for severe withdrawal symptoms, CIWA 37. Pt havin auditory and visual hallucinations. Pt is on 1:1 observation for safety.
[2017-10-03 22:58] VITALS: BP 126/83
--- NOTE | 2017-10-03 22:58 | NUR ---
PRN BENADRYL AND CLONIDINE ADMINISTRATION Benadryl 50mg and Clonidine 0.1mg given for insomnia (2nd night) and body aches. Will reassess pt in 1 hr.
--- NOTE | 2017-10-03 23:58 | NUR ---
PRN BENADRYL AND CLONIDINE REASSESSMENT Pt is still awake and continuing to have body aches. CIWA 35.
[2017-10-04] VITALS: BP 131/91
--- NOTE | 2017-10-04 | NUR ---
CIWA AND COWS ASSESSMENT CIWA score 35 and COWS score 16. Pt presenting w/ severe auditory and visual hallucinations, sweats, flushing, body aches, anxiety, and agitation.
[2017-10-04] MEDS: QUETIAPINE FUMARATE 25 MG TABLET PO PRN ×4 (00:27→15:26)
[2017-10-04] MEDS: HYDROXYZINE PAMOATE 25 MG CAPSULE PO PRN ×3 (00:27→15:23)
--- NOTE | 2017-10-04 00:27 | NUR ---
PRN SEROQUEL AND VISTARIL ADMINISTRATION Seroquel 50mg and Vistaril 25mg given for insomnia, psychosis, and anxiety. CIWA 35. Will reassess pt in 1 hr.
--- NOTE | 2017-10-04 01:27 | NUR ---
PRN VISTARIL AND SEROQUEL REASSESSMENT Pt is still experiencing auditory and visual hallucinations. Pt is continuing to present w/ agitation.
[2017-10-04] MEDS ORDERED: DIAZEPAM 10 MG TABLET PO ONE (02:00)
--- NOTE | 2017-10-04 02:15 | NUR ---
ONE TIME VALIUM ADMINISTRATION Valium 10mg given per MD for severe withdrawal symptoms, CIWA 35. Pt having auditory and visual hallucinations. Will continue to monitor pat.
[2017-10-04 04:00] VITALS: BP 123/86
[2017-10-04] MEDS: CLONIDINE HCL 0.1 MG TABLET PO PRN ×2 (04:05→22:10)
--- NOTE | 2017-10-04 04:05 | NUR ---
COWS and CIWA Assessment, Clonidine and Seroquel PRN: Pt remains with hallucinations. Pt screamed "my is under the bed!". Pt paces around the room and attempted to climb across the bed. Pt remains with 1:1 sitter and kept safe. CIWA 34 COWS 17. 0.1mg Clonidine PO Q4HPRN given for Anxiety/Agitation. 50mg Seroquel PO Q4HPRN given for Psychosis/Agitation. Will continue to monitor.
--- NOTE | 2017-10-04 05:00 | NUR ---
Clonidine and Seroquel Reassessment: Pt still with severe visual and auditory hallucinations. Pt is more receptive to redirection and is able to calm down and cooperate with staff despite some outbursts. Clonidine and Seroquel slightly effective in managing agitation. Pt remains on 1:1 and kept safe at this time. Will continue to monitor.
[2017-10-04] MEDS: LORAZEPAM 1 MG TABLET PO PRN ×2 (05:43→15:24)
--- NOTE | 2017-10-04 05:43 | NUR ---
Ativan PRN: Pt noted with severe auditory and visual hallucinations. Pt observed with moderate tremors, obvious sweating, moderate anxiety and agitation. CIWA 34. MD okayed to give 2mg Ativan PO Q2HPRN per CIWA score. Will continue to monitor.
[2017-10-04] MEDS: LEVOTHYROXINE SODIUM 50 MCG TABLET PO SCH (06:36)
--- NOTE | 2017-10-04 06:36 | NUR ---
PRN VISTARIL ADMINISTRATION Vistaril 25mg given for anxiety, pt is agitated and restless. Will reassess pt in 1 hr.
--- NOTE | 2017-10-04 06:43 | NUR ---
PRN ATIVAN REASSESSMENT Pt is still continuing to experience continuous and severe auditory and visual hallucinations. CIWA 34.
[2017-10-04] MEDS ORDERED: LEVOTHYROXINE SODIUM 25 MCG TABLET PO SCH (07:00)
--- NOTE | 2017-10-04 07:18 | NUR ---
END OF SHIFT NOTE Endorsed pt to oncoming nurse, pt is in his room. Pt is a 46 y/o male A/O to person only. Pt was admitted for medically supervised withdrawal from ETOH and Opiates. Pt was placed on 1:1 observation for safety @ 0935 on 10/03/17. Pt is experiencing continuous and severe auditory and visual hallucinations. Pt is presenting w/ sweats, gross tremors, flushing, and hot flashes. PRN Seroquel 50mg given @ 2043 for agitation and psychosis. PRN Benadryl 50mg and Clonidine 0.1mg given @ 2258 for insomnia and body aches. PRN Seroquel 50mg and Vistaril 25mg given @ 0027 for agitation, psychosis, and anxiety. PRN Ativan 2mg given @ 0543 for CIWA of 34. All PRN medications noted ineffective. Pt was given one time doses per MD of Valium 10mg @ 1915, 2043, 2255, and 0215. These were also noted ineffective. Last CIWA 34 and COWS 17 @ 0400. PRN Vistaril 25mg given @ 0636 for anxiety, will endorse reassessment to oncoming nurse.
--- NOTE | 2017-10-04 07:48 | NUR ---
START OF SHIFT Pt is a 46 yr old male admitted on 09/29/17 for ETOH/Opiate withdrawal and is on 5 day Ativan taper and 4 day Subutex taper as ordered. Received report from convalescent sitter nurse. Pt was noted with visual, auditory and tactile hallucinations during the night and received multiple PRN's during the night. Medication was ineffective. Pt continues to be noted with visual, auditory and tactile hallucinations. Pt is noted with flushed face. Skin is intact, warm and moist to touch. Pt remains on 1:1 for safety. Pt is on fall and seizure precautions. Call light is within reach. will continue to monitor.
[2017-10-04 08:00] VITALS: BP 125/79
--- NOTE | 2017-10-04 08:00 | NUR ---
COWS score is 14 and CIWA score is 39. Pt is noted with anxiety, agitation, confused to place, time and situation. Pt is noted with gross tremors on BUE and weak gait. Pt is observed restless and is frequently shifting. Addendum: 10/04/17 at 1511 by COREY TEIXEIRA LVN Pt continues to have continuously visual, auditory and tactile hallucinations
[2017-10-04] MEDS: FOLIC ACID 1 MG TABLET PO SCH (08:38)
[2017-10-04] MEDS: THIAMINE HCL 100 MG TABLET PO SCH (08:38)
[2017-10-04] MEDS: MULTIVITAMINS,THERAPEUTIC TABLET PO SCH (08:39)
[2017-10-04] MEDS ORDERED: LORAZEPAM 1 MG TABLET PO SCH (09:00)
[2017-10-04] MEDS ORDERED: 4 DAY TAPER VALIUM-SERENITY PROTOCOL PO PRN (11:00)
--- NOTE | 2017-10-04 11:12 | NUR ---
MD COMMUNICATION Pt continues to be observed with visual, auditory and tactile hallucinations. Pt is noted with anxiety, agitation and confusion to place, time and situation. Report to Dr. Terry with new verbal order to discontinue 5 day Ativan taper and start on 4 day Valium taper starting today. new order noted and carried out.
[2017-10-04] MEDS: DIAZEPAM 10 MG TABLET PO SCH ×3 (11:26→21:02)
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
[2017-10-04 12:00] VITALS: BP 114/71
--- NOTE | 2017-10-04 12:00 | NUR ---
COWS score is 12 and CIWA score is 35. Pt continues to be noted with anxiety, agitation, and confused to place, time and situation. Pt is noted with gross tremors on BUE and weak gait. Pt is observed restless and is frequently shifting. Pt continues to have continuously visual, auditory and tactile hallucinations
--- NOTE | 2017-10-04 12:26 | NUR ---
PRN RE-ASSESSMENT Seroquel 50mg PO PRN was effective. Pt is currently in bed resting with respirations even and unlabored. Pt is noted restless in bed. Safety precautions observed. Will continue to monitor.
--- NOTE | 2017-10-04 15:11 | NUR ---
MD COMMUNICATION Pt was seen and examined by Dr. Terry and received a verbal order for Ativan 2mg PO Q2HPRN for anxiety/agitation. New order was noted and carried out.
--- NOTE | 2017-10-04 15:27 | NUR ---
PRN GIVEN Pt is noted with increase anxiety, agitation, and confused to place, time and situation. Pt is noted with gross tremors on BUE. Pt was given Ativan 2mg PO PRN, Vistaril 25mg PO PRN and Seroquel 50mg PO PRN. Medication was alfredo well. Encouraged increase fluid intake for hydration. Will continue to monitor.
[2017-10-04 16:00] VITALS: BP 121/82
--- NOTE | 2017-10-04 16:00 | NUR ---
COWS score is 16 and CIWA score is 43. Pt continues to be noted with increase anxiety, agitation, and confused to place, time and situation. Pt is noted with gross tremors on BUE and weak gait. Pt is observed restless and unable to stay still. Pt continues to have continuously visual, auditory and tactile hallucinations stating, "I need to remove the dry wall". 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 Section Chief tried to redirected pt to reality but was unsuccessful. Pt continues to be noted with confusion and hallucinations. Dr. Terry is made aware. Will continue to monitor.
--- NOTE | 2017-10-04 16:40 | NUR ---
PRN RE-ASSESSMENT/MD COMMUNICATION Ativan 2mg PO PRN, Seroquel 50mg PO PRN and Vistaril 25mg PO PRN was ineffective. Pt continues to be observed with increase anxiety, agitation and confused. Pt was seen and examined by Dr. Chapa with new order for Zyprexa 5mg Q12H. New order was noted and carried out
[2017-10-04] MEDS ORDERED: OLANZAPINE 5 MG TABLET PO ONE (17:00)
--- NOTE | 2017-10-04 19:07 | NUR ---
END OF SHIFT Pt is a 46 yr old male admitted on 09/29/17 for ETOH/Opiate withdrawal. Pt is confused to place, time and situation. Pt has been observed with continuous visual, auditory and tactile hallucinations. Facial sweats and gross tremors are seen. Dr. Terry was made aware of pt's condition and received new order to discontinue 5 day Ativan taper and start on 4 day Valium taper as ordered. New order was noted and carried out. Pt received Seroquel 50mg PO PRN for psychosis/agitation at 1126 and 1526, Ativan 2mg PO PRN at 1523 and Vistaril 25mg PO at 1523, medication was ineffective. Pt continues to have increase anxiety, agitation, visual and auditory hallucinations and confusion. Pt remains on 1:1 for safety. Pt was encouraged increase fluid intake for hydration. Last COWS score was 16 and CIWA score was 43 at 1600. Pt is on fall and seizure precautions. Call light is within reach. Endorsed to vegetable farm manager nurse to continue with care.
--- NOTE | 2017-10-04 19:30 | NUR ---
START OF SHIFT Pt is a 46 yr old male admitted on 09/29/17 for ETOH/Opiate withdrawal. Pt is A/O to himself only,confused regarding day,date and location.Per report, Pt has been observed with continuous visual, auditory and tactile hallucinations with facial sweats and gross tremors. Dr. Terry was made aware of pt's condition and received new order to discontinue 5 day Ativan taper and start on 4 day Valium taper as ordered. New order was noted and carried out.During the day shift, Pt received PRN med-Seroquel x 2,Ativan 2mg PO x1 and Vistaril 25mg PO x 1.Pt received in room with 1:1 staff at an arm length distance for safety.Pt continues to have increase anxiety, agitation, visual and auditory hallucinations and confusion. Pt remains on 1:1 for safety. PO fluids encouraged. Last COWS score was 16 and CIWA score was 43 at 1600. Pt is on fall and seizure precautions. Call light is within reach.Will continue to monitor for safety.
[2017-10-04 20:00] VITALS: BP 144/94
--- NOTE | 2017-10-04 20:00 | NUR ---
COWS score is 17 and CIWA score is 27. Pt remains anxious and restless,unable to sit still,confused to place, time and situation. Pt continues to have visual, auditory and tactile hallucinations stating, " there are pieces of broken glass on the bed",refusing to get in bed. Redirections to reality are unsuccessful. Pt continues on close monitoring for safety.
[2017-10-04] MEDS: diphenhydrAMINE 50 MG CAPSULE PO PRN (21:02)
[2017-10-04] MEDS: OLANZAPINE 5 MG TABLET PO SCH (21:02)
--- NOTE | 2017-10-04 21:04 | NUR ---
PRN BENADRYL GIVEN ORDERED FOR C/O INSOMNIA.WILL MONITOR FOR EFFECTIVENESS.
--- NOTE | 2017-10-04 22:12 | NUR ---
PRN MED/PRN BENADRYL REASSESSMENT. PRN CLONIDINE GIVEN FOR B/P 144/94.PT REMAINS ANXIOUS,RESTLESS,STILL AWAKE,UNABLE TO SIT STILL.PRN BENADRYL IS NOT EFFECTIVE AT THIS TIME.WILL CONTINUE TO MONITOR.
--- NOTE | 2017-10-04 23:10 | NUR ---
PRN F/U B/P =138/84.PT REMAINS RESTLESS,UNABLE TO SIT STILL BUT IS ABLE TO FOLLOW DIRECTIONS.WILL CONTINUE TO REDIRECT NEEDED AND MONITOR CLOSELY.
--- NOTE | 2017-10-05 | NUR ---
COWS/CIWA DEFERRED. PT OBSERVED RESTING IN BED WITH EYES CLOSED,BREATHING IS EVEN AND NON LABORED,NO S/S OF DISTRESS NOTED.WILL CONTINUE TO MONITOR.
--- NOTE | 2017-10-05 02:00 | NUR ---
COWS score is 18 and CIWA score is 30. Pt remains anxious and restless,unable to sit still,confused and disorganized. Pt continues to have visual, auditory and tactile hallucinations stating, " there is a knife in the bed", constantly picking on the bed frame and controls. Redirections to reality remain unsuccessful. Pt continues to be on close monitoring for safety.
--- NOTE | 2017-10-05 02:05 | NUR ---
MD COMMUNICATION DR POOL IS PRESENT ON THE UNIT.HE IS MADE AWARE OF PT'S CONDITION.NO NEW ORDERS NOTED AT THIS TIME.
[2017-10-05] MEDS: LORAZEPAM 1 MG TABLET PO PRN ×2 (02:11→04:19)
[2017-10-05] MEDS: QUETIAPINE FUMARATE 25 MG TABLET PO PRN (02:11)
--- NOTE | 2017-10-05 02:12 | NUR ---
PRN MEDS PRN SEROQUEL AND ATIVAN GIVEN ORDERED FOR ANXIETY/AGITATION AND PSYCHOSIS.PT IS EXREMELY ANXIOUS AND RESTLESS,GETTING IN AND OUT OF BED,UNABLE TO SIT STILL,CONSTANTLY PICKING ON BED FRAME AND CONTROLS,BELIEVES THAT THERE IS KNIFE IN THERE.PT IS COOPERATIVE WITH MEDICATIONS.WILL MONITOR FOR EFFECTIVENESS.
--- NOTE | 2017-10-05 03:12 | NUR ---
PRN REASSESSMENT SEROQUEL AND ATIVAN GIVEN AN HOUR AGO ARE MINIMALLY EFFECTIVE.PT REMAINS RESTLESS AND ANXIOUS,GETTING IN AND OUT OF BED,CONTINUES TO HAVE VISUAL AND AUDITORY HALLUCINATIONS M/B ATTEMPTING TO GRAB UNSEEN OBJECTS AND MUMBLING INCOHERENTLY TO HIMSELF AND UNSEEN OTHERS.NEEDING CONSTANT REDIRECTIONS.WILL CONTINUE MONITORING.
[2017-10-05 04:00] VITALS: BP_SYST 135; BP_SYST 138; BP_DIAS 95
--- NOTE | 2017-10-05 04:00 | NUR ---
COWS score is 17 and CIWA score is 27. Pt remains anxious and restless,unable to sit still,confused and disorganized. Pt continues to have visual, auditory and tactile hallucinations mumbling incoherently. Constantly picking unseen objects. Redirections to reality remain unsuccessful. Pt continues to be on close monitoring for safety.
--- NOTE | 2017-10-05 04:20 | NUR ---
PRN ATIVAN GIVEN FOR ANXIETY/AGITATION AND PSYCHOSIS.PT REMAINS SAFE WITH 1:1 CLOSE OBSERVATION.WILL CONTINUE TO MONITOR.
--- NOTE | 2017-10-05 06:25 | NUR ---
RN note one-time Zyprexa IM Patient noted to become more agitated and less redirectable. Dr. Chapa notified and MD ordered Zyprexa 5 mg IM one-time. Primary Care Nurse to administer.
[2017-10-05] MEDS ORDERED: OLANZAPINE 10 MG VIAL IM ONE (06:30)
--- NOTE | 2017-10-05 06:41 | NUR ---
ZYPREXA IM ADMINISTRATION PT HAS BEEN ANXIOUS,RESTLESS AND AGITATED MOST OF NIGHT,NOT RESPONDING WELL TO PO MEDICATIONS.DR HERR WAS NOTIFIED.ZYPREXA 5 MG IM GIVEN ORDERED ON RIGHT GLUTEAL.PT WAS COOPERATIVE WITH IM ADMINISTRATION.REMAINS ON CLOSE OBSERVATION WITH BAIT PAINTER FOR SAFETY.
[2017-10-05] MEDS: LEVOTHYROXINE SODIUM 50 MCG TABLET PO SCH (06:43)
--- NOTE | 2017-10-05 07:10 | NUR ---
Start of Shift Termite Treater received report on 46 year old male admitted to [facility] on 09/29/17 for medical management of ETOH and Opiate withdrawals. Pt endorses NKA, full code and regular diet. PMH of heart murmur and appendectomy with no PPH. Pt currently on a Valium taper, having completed the Subutex taper. Pt with moderate tolerance with last COWS 17 and CIWA 27, per NOC report. Pt was admiistered PRN Seroquel(insomnia), Benadryl(insomnia), and Ativan 2mg(anxiety) x2 on NOC, per report. Termite Treater encounters pt in pts room with 2:1 staffing for safety. Pt is oriented to name only, disorganized, speaks in word salad and is confused. Pt is actively RTIS, picking up objects not there, talking to unseen others. Pt is hallucinating about being in war and perseverates on his wallet. Pt looks out window and sees people not there. Pt is not combative, but requires constant redirection. Bed in low position with wheels locked and side rails up x2. Will continue to monitor, support and encourage according to plan of care.
--- NOTE | 2017-10-05 07:11 | NUR ---
IM Re-Assessment Medication ineffective as pt remains disorganized, confused and RTIS with VH and AH, and appears to be TH, although pt can not verbalize such hallucinations due to his state. Pt currently on 2:1 staffing for safety. Will continue to monitor, support and encourage according to plan of care.
--- NOTE | 2017-10-05 07:22 | NUR ---
END OF SHIFT Pt is a 46 yr old male admitted on 09/29/17 for ETOH/Opiate withdrawal. Pt is A/O to himself only,confused regarding day,date and location.Per report, Pt has been continuously observed having visual, auditory and tactile hallucinations with facial sweats and gross tremors.Pt continues on Valium taper as ordered;no adverse reactions noted. Pt received PRN med-Seroquel 50 mg PO x 1,Ativan 2mg PO x2 Benadryl 50 mg PO x 1 and Clonidine x1 as ordered.Pt was also given Zyprexa 5 mg IM X1.Pt continues with 1:1 staff at an arm length distance for safety. PO fluids encouraged. Last COWS score was 17 and CIWA score was 27 at 0400. Pt is on fall and seizure precautions. Call light is within reach.Pt endorsed to day shift nurse in a stable condition. Addendum: 10/05/17 at 0733 by NICOLE SUE RN PT DID NOT SLEEP AT ALL DURING THE NIGHT.FLUID INTAKE WAS 1500 MLS,VOIDED X 2,HAD A B/M X 1.
--- NOTE | 2017-10-05 08:00 | NUR ---
COWS 18/CIWA 37 Pt RTIS, auditory hallucinations, speaking to unseen others. VH, picking at unseen objects. Pt is disoriented and disorganized and unable to process. Pt is diaphoretic, anxious, tremulous(gross) and oriented to name only. Pt requires constant observation for safety, d/t severe withdrawal symptoms. Will continue to monitor, support and encourage according to plan of care.
[2017-10-05 08:28] VITALS: BP 131/75
[2017-10-05] MEDS: THIAMINE HCL 100 MG TABLET PO SCH (08:38)
[2017-10-05] MEDS: DIAZEPAM 5 MG TABLET PO SCH ×4 (08:38→20:35)
[2017-10-05] MEDS: FOLIC ACID 1 MG TABLET PO SCH (08:38)
[2017-10-05] MEDS: MULTIVITAMINS,THERAPEUTIC TABLET PO SCH (08:38)
[2017-10-05] MEDS: OLANZAPINE 5 MG TABLET PO SCH ×2 (08:38→20:35)
[2017-10-05] MEDS ORDERED: HALOPERIDOL LACTATE 5 MG/1 ML VIAL IM STA (08:53)
[2017-10-05] MEDS ORDERED: LORAZEPAM 2 MG/1 ML VIAL IM STA (08:53)
[2017-10-05] MEDS ORDERED: diphenhydrAMINE 50 MG/1 ML VIAL IM STA (08:53)
--- NOTE | 2017-10-05 09:16 | NUR ---
IM Haldol/Ativan/Benadryl Pt RTIS, becoming agitated and irritable. Pt is confused, disorganized and disoriented, oriented to name only. Hall Cleaner received MD order for medication and administered per order, with pt tolerating well. Will continue to monitor, support and encourage according to plan of care.
--- NOTE | 2017-10-05 09:46 | NUR ---
IM Re-Assessment Medication not effective as pt continues to RTIS, agitated and requiring constant redirection and observation. Will continue to monitor, support and encourage according to plan of care.
--- NOTE | 2017-10-05 10:49 | NUR ---
Crisis Team Order Sewer Maintenance Supervisor received order from Dr. Chapa for a crisis team evaluation d/t pt's severe psychosis and danger to himself. Crisis team has been contacted. Will continue to monitor, support and encourage according to plan of care.
--- NOTE | 2017-10-05 10:51 | NUR ---
Nursing Note Pt continues to have hallucinations, confusion, and disorientation. At times he is attempting to leave the unit. His gait is unsteady. He is not responding to medications. Dr. Chapa notified and advised to call crisis team. Zurdo from crisis team contacted and he will come to the [facility] to evaluate patient.
[2017-10-05] MEDS ORDERED: PHENOBARBITAL 60 MG TABLET PO SCH (11:00)
[2017-10-05] MEDS ORDERED: 6 DAY PHENOBARBITAL TAPER -SERENITY PROTOCOL PO PRN (11:15)
--- NOTE | 2017-10-05 11:59 | NUR ---
Medication Held Pt is sleeping after several IM medications. Pt has been psychotic and RTIS. Dr. Terry aware of medication being held. Will continue to monitor, support and encourage according to plan of care.
--- NOTE | 2017-10-05 12:00 | NUR ---
COWS/CIWA Deferred Toilet Products Molder defers assessment due to pt sleeping. Pt has finally responded to IM medication and needs his rest. MD aware of deferment. Will continue to monitor, support and encourage according to plan of care.
--- NOTE | 2017-10-05 12:00 | NUR ---
5150 Pt placed on 5150 for GD by crisis team mixer and blender. Unable to advise pt at this time due to severe psychosis and pt currently sleeping. Will continue to monitor, support and encourage according to plan of care.
--- NOTE | 2017-10-05 13:07 | NUR ---
Behavior Pt is currently resting with eyes closed, even and unlabored respirations noted. 2:1 staff at bedside for safety. Will continue to monitor, support and encourage according to plan of care.
--- NOTE | 2017-10-05 13:59 | NUR ---
Medication Held Steam Clean Machine Operator non-administered medication due to sleep and sedation. MD aware and in agreement. Will continue to monitor, support and encourage according to plan of care.
[2017-10-05 16:30] VITALS: BP 116/78
--- NOTE | 2017-10-05 16:30 | NUR ---
COWS 10/CIWA 17 Pt is re-oriented, A/O x4, slow to process and respond, but appropriate responses. Pt remains diaphoretic, anxious, tremulous and has body aches and stomach cramps. Will continue to monitor, support and encourage according to plan of care.
--- NOTE | 2017-10-05 18:55 | NUR ---
End of Shift Finance Officer provided report on 46 year old male admitted to [facility] on 09/29/17 for medical management of ETOH and Opiate withdrawals. Pt endorses NKA, full code and regular diet. PMH of heart murmur and appendectomy with no PPH. Pt currently on a Valium taper, having completed the Subutex taper. Pt with moderate tolerance with last COWS 10 and CIWA 17 recorded at 1630. Pt was not administered [place] Mmedication this shift. Pt was administered an IM of Haldol/Ativan/Benadryl that was effective after two hours. Pt had been severely RTIS, was disoriented, disorganized and confused. Pt then slept for 5 hours and awoke, A/O x4, although slow to process, but appropriate in response. Pt is tremulous, diaphoretic and complains of muscle aches and stomach cramps. Pt currently resting with :1 staff due to safety and fall risk. Bed in low position with wheels locked and side rails up x2.
[2017-10-05 20:00] VITALS: BP 119/89
--- NOTE | 2017-10-05 20:00 | NUR ---
Start of Shift Note Received a 46 y/o male px, admitted on 09/29/2017 for medically supervised withdrawal from ETOH and [place]. Px is on 5150 and 1 to 1 due to hallucinations and for safety. Px finished 4 day modified Subutex taper and initially 5 day Ativan taper but D/C on 10/04/2017 then started 4 day Valium taper on 10/04/2017. Px is tolerating it. Px had no more hallucinations last time AM shift nurse checked on the px. Last reported COWS 10 and CIWA 17 by AM shift nurse. During the rounds at 1999, px just woke up. Px appears depressed, anxious, and flat affect with poor eye contact. Px is disheveled, unshaven and odorous. Drinks noted on top of his cabinet. Px was asked where is he, px answered correctly. Px was asked if he knows the date or the day of the week today. The px answered correct date but missed the day of the week, px said "it's Wednesday." Px was asked if he knows the time, px answered "it's already night." Px stated My anxiety is 5/10 and I have LBP of 7/10. Bilateral hand tremors noted. Bed on lowest position, side rails up 2x, and call light within reach. Well continue to monitor.
--- NOTE | 2017-10-05 20:35 | NUR ---
PRN Motrin Px received Motrin 600 mg/tab, 1 tab PO as PRN medication for LBP of 10/05. We'll continue to monitor.
--- NOTE | 2017-10-05 21:35 | NUR ---
Reassessment of LBP Px stated that his LBP improved from 7/10 to 5/10 after an hour of administration of Motrin 600 mg PO. We'll continue to monitor.
--- NOTE | 2017-10-05 21:35 | NUR ---
CIWA 13 Px appears anxious and drowsy. Px is oriented. He has bilateral hand tremors, and sweats. We'll continue to monitor.
[2017-10-06] VITALS: BP 97/58
[2017-10-06 04:00] VITALS: BP 92/57
--- NOTE | 2017-10-06 04:00 | NUR ---
COWS and CIWA deferred COWS and CIWA deferred at 0000 and 0400 due to the px is asleep. To assess if the px is awake per doctor's order. We'll continue to monitor.
[2017-10-06] MEDS: LEVOTHYROXINE SODIUM 50 MCG TABLET PO SCH (06:52)
--- NOTE | 2017-10-06 07:10 | NUR ---
End of Shift Note Px is on 5150, 1 to 1 observation due previous hallucinations and for safety. At 2033, Motrin 600 mg given PO for LBP of 7, it was effective. Px has no hallucinations during the shift just confused on day of the week. Px oral intake is 500 ml, no void and no BM. Px slept for 9 hours. Last COWS 9 and CIWA 13. At 0630, px is asleep on bed in fowlers position. Bed on lowest position, side rails up 2x, and call light within reach. Well continue to monitor. Px endorsed to AM shift nurse
--- NOTE | 2017-10-06 07:30 | NUR ---
Start of Shift Human Resources Technician received report on 46 year old male admitted to [facility] on 09/29/17 for medical management of ETOH and Opiate withdrawals. Pt endorses NKA, full code and regular diet. PMH of heart murmur and appendectomy with no PPH. Pt currently on a Valium taper, having completed the Subutex taper. Pt tolerating well, with last COWS 9 and CIWA 13, per NOC report. Pt was administered PRN Motrin(pain) on NOC, per report. Human Resources Technician encounters pt in pts room with 1:1 staffing due to pt being placed on 5150. Pt is A/O x4 and able to make needs known. Pt is calm and cooperative. Linear though process and clear speech pattern. Pt with complaints of stomach cramps, anxiety and restlessness. Bed in low position with wheels locked and side rails up x2. Will continue to monitor, support and encourage according to plan of care.
--- NOTE | 2017-10-06 08:00 | NUR ---
COWS 8/CIWA 15 Pt is diaphoretic, anxious and restless, with complaints of nausea, and a full feeling head. Will continue to monitor, support and encourage according to plan of care.
[2017-10-06 08:35] VITALS: BP 113/74
[2017-10-06] MEDS: FOLIC ACID 1 MG TABLET PO SCH (08:44)
[2017-10-06] MEDS: MULTIVITAMINS,THERAPEUTIC TABLET PO SCH (08:44)
[2017-10-06] MEDS: OLANZAPINE 5 MG TABLET PO SCH ×2 (08:45→20:55)
[2017-10-06] MEDS: THIAMINE HCL 100 MG TABLET PO SCH (08:45)
[2017-10-06] MEDS: DIAZEPAM 5 MG TABLET PO SCH ×3 (08:45→20:55)
[2017-10-06] MEDS ORDERED: PHENOBARBITAL 60 MG TABLET PO SCH (09:00)
--- NOTE | 2017-10-06 12:00 | NUR ---
CIWA 11/COWS 8 Pt experiencing tremors, nausea, anxiety, restlessness and sweating with chills. Will continue to monitor, support and encourage according to plan of care.
[2017-10-06 12:15] VITALS: BP 133/81
[2017-10-06 16:30] VITALS: BP 125/94
--- NOTE | 2017-10-06 16:30 | NUR ---
CIWA 9 /COWS 7 Pt is tremulous, sweating, anxious, restless and complains of body aches. Will continue to monitor, support and encourage according to plan of care.
--- NOTE | 2017-10-06 16:34 | NUR ---
Client was prompted to attend twice daily group counseling sessions.
--- NOTE | 2017-10-06 17:05 | NUR ---
[address] Chapa on the unit and rescinds pt's 5150. 1:1 attendant removed. Pt notified.
--- NOTE | 2017-10-06 19:00 | NUR ---
End of Shift Associate Dean provided report on 46 year old male admitted to [facility] on 09/29/17 for medical management of ETOH and Opiate withdrawals. Pt endorses NKA, full code and regular diet. PMH of heart murmur and appendectomy with no PPH. Pt currently on a Valium taper, having completed the Subutex taper. Last COWS 7 and CIWA 9, recorded at 1630. Pt was not administered any PRN medication this shift.. Pt is A/O x4 and able to make needs known. Pt is calm and cooperative. Linear though process and clear speech pattern. Pt with complaints of stomach cramps, anxiety and restlessness. Pt had his 5150 rescinded by MD today and no longer requires 1:1 staffing. Bed in low position with wheels locked and side rails up x2.
--- NOTE | 2017-10-06 19:45 | NUR ---
Start of Shift Note Received a 46 y/o male px, admitted on 09/29/2017 for medically supervised withdrawal from ETOH and [place]. Px finished 4 day modified Subutex taper and initially 5 day Ativan taper but D/C on 10/04/2017 then started 4 day Valium taper on 10/04/2017. Px is tolerating it. Last reported COWS 7 and CIWA 9 by AM shift nurse. As endorsed, px has no hallucinating episodes, 5150 and 1 to 1 were D/C. During the rounds at 1945, px is awake sitting on the edge of the bed. Px appears disheveled, unshaven and odorous. Drinks noted on top of his cabinet. Px stated I feel much better now. I didnt imagine that I will experience those bad hallucinations by drinking. My anxiety now is 3/10. Bilateral hand tremors noted. Bed on lowest position, side rails up 2x, and call light within reach. Well continue to monitor.
[2017-10-06 20:00] VITALS: BP 137/89
--- NOTE | 2017-10-06 21:55 | NUR ---
CIWA 10 Px is awake on bed watching TV while eating snack. Px is A&Ox4. Px stated "My anxiety is still the same, pretty low. No pain at the moment. Bilateral hand tremors noted. We'll continue to monitor.
[2017-10-07] VITALS: BP 88/53
[2017-10-07 04:00] VITALS: BP 92/56
[2017-10-07] MEDS: LEVOTHYROXINE SODIUM 50 MCG TABLET PO SCH (06:41)
--- NOTE | 2017-10-07 07:10 | NUR ---
End of Shift Note During the shift, px has no reported hallucinations. No PRN medication given. Px oral intake is 800 ml, voided 2x with 1x BM. Px slept for 7.5 hours. Last COWS 7 and CIWA 10. At 0630, px is asleep on bed in fowlers position. Bed on lowest position, side rails up 2x, and call light within reach. Well continue to monitor. Px endorsed to AM shift nurse
--- NOTE | 2017-10-07 07:50 | NUR ---
START OF SHIFT Client is in bed, a/o x 4, client presents with anxious mood, flat affect, flushed face, clammy skin, tremors, and difficulty concentrating. Client reports sweats, shaking, headache, nausea, decreased appetite, abdominal cramps, and fatigue. Client denies any hallucinations, no SI/HI. Encourage client to increase PO fluid to facilitated detox and rehydration. Encourage client to participate in group therapy. Last WA 7 @ 1999. Client slept 7.5 hrs. Seizure precautions rendered. Call light within reach.
[2017-10-07 08:32] VITALS: BP 137/82
[2017-10-07] MEDS: MULTIVITAMINS,THERAPEUTIC TABLET PO SCH (08:43)
[2017-10-07] MEDS: THIAMINE HCL 100 MG TABLET PO SCH (08:43)
[2017-10-07] MEDS: DIAZEPAM 5 MG TABLET PO SCH ×2 (08:43→20:54)
[2017-10-07] MEDS: FOLIC ACID 1 MG TABLET PO SCH (08:43)
[2017-10-07] MEDS: OLANZAPINE 5 MG TABLET PO SCH ×2 (08:43→20:54)
--- NOTE | 2017-10-07 08:45 | NUR ---
CIWA 14/COWS 9 Client presents with anxious mood, agitated, inability to stay still, tremors, clammy skin, intermittent nausea, and restlessness. Diazepam 5mg PO administered. Encourage client to increase PO to facilitate detox. Call light within reach.
[2017-10-07] MEDS ORDERED: PHENOBARBITAL 60 MG TABLET PO SCH (09:00)
[2017-10-07 12:29] VITALS: BP 145/97
[2017-10-07] MEDS: HYDROXYZINE PAMOATE 25 MG CAPSULE PO PRN (12:47)
--- NOTE | 2017-10-07 12:47 | NUR ---
PRN Clonidine 0.1mg PO for BP 145/97, Vistaril 25mg PO for anxiety. Call light within reach.
[2017-10-07] MEDS: CLONIDINE HCL 0.1 MG TABLET PO PRN (12:48)
--- NOTE | 2017-10-07 12:56 | NUR ---
CIWA 14/COWS 9 Client is tremulous, sweating, anxious, agitated, restless, and inability to concentrate. PRN medications administered per protocol. Will continue to monitor. Call light within reach.
--- NOTE | 2017-10-07 13:43 | NUR ---
Client was prompted to attend group counseling sessions daily.
--- NOTE | 2017-10-07 13:47 | NUR ---
Reassess PRN Clonidine 0.1mg BP 127/83, Vistaril 25mg, client appears less anxious, he is able to sit still. Call light within reach.
--- NOTE | 2017-10-07 14:40 | NUR ---
per Dr. Terry to d/c Lorazepam 2mg PRNQ2H PO. CN notified
[2017-10-07 16:07] VITALS: BP 135/89
--- NOTE | 2017-10-07 16:12 | NUR ---
CIWA 12/ 7 Client continues to present with anxiety, agitation, tremors, flushed face, difficulty staying still, [place], moist skin, and difficulty concentrating. Client declines Tylenol or Motrin for [place], will continue to monitor. Call light within reach.
--- NOTE | 2017-10-07 19:14 | NUR ---
END OF SHIFT Endorse client to incoming nurse, client is in bed, a/o x 4, client continues to present with anxiety, agitation, flat affect, clammy skin, tremors, abdominal cramps, fatigue, and difficulty concentrating. Client denies hallucinations and SI/HI. PRN administered and noted per protocol. Client was compliant with 2/3 group therapy. Client consumes 75% of meals. Adequate PO fluid intake 1465mL, void x 5, stool x 1. Last CIWA 7 @ 1600. Seizure precautions rendered. Call light within reach.
--- NOTE | 2017-10-07 19:15 | NUR ---
Start of Shift Note: Patient is a 46 y.o male admitted on 09/29/17 for medically supervised withdrawal from ETOH and [place] use. Patient is alert & oriented x4. He presented with 4/10 generalized body aches, fine tremors, barely sweating, anxiety & restlessness. Pt completed his Subutex taper and is on his day 5 of his 5-day Valium taper and tolerating well. Pt received PRN Clonidine & Vistaril during day shift and were effective per report. Last COWS 7 CIWA 11. Encourage pt to increase fluid intake. Educated pt of current plan of care for the night and medication regimen. All needs attended & met. Safety measures in place. Will continue to monitor patient.
[2017-10-07 20:00] VITALS: BP 132/80
[2017-10-07] MEDS: diphenhydrAMINE 50 MG CAPSULE PO PRN (20:53)
--- NOTE | 2017-10-07 20:53 | NUR ---
PRN Benadryl Patient requesting for medication to help him sleep. Per pt, he slept in the afternoon for 3 hours and he will probably have trouble sleeping tonight. PRN Benadryl administered as ordered. Safety measures in place. Will continue to monitor patient.
--- NOTE | 2017-10-07 21:53 | NUR ---
PRN Reassessment PRN effective. Patient asleep in bed and appears comfortable. Respiration even & unlabored. Safety measures in place. Will continue to monitor patient.
[2017-10-08] VITALS: BP 113/73
[2017-10-08 04:00] VITALS: BP 121/78
[2017-10-08] MEDS: LEVOTHYROXINE SODIUM 50 MCG TABLET PO SCH (06:43)
--- NOTE | 2017-10-08 07:11 | NUR ---
End of Shift Note: Patient is a 46 y.i male admitted on 09/29/17 for medically supervised withdrawal from ETOH and [place] use. During my shift, he presented with myalgia, fine tremors, sweating, anxiety & restlessness. He completed his Subutex & Valium taper and he tolerated medications well. He remained in his room throughout the shift. Last COWS is 6 CIWA 9. No PRN medications received during my shift. Continue to encourage pt to increase fluid intake for hydration and to attend group activities to learn coping skills. He slept for a total of 6 hours. Fluid intake 1000 ml, Voided 1x with no bowel movement. All needs attended. Safety measures in place. Will endorse pt to day shift nurse.
--- NOTE | 2017-10-08 07:30 | NUR ---
Start of Shift Viscera Washer received report on 46 year old male admitted to [facility] on 09/29/17 for medical management of ETOH and Opiate withdrawals. Pt endorses NKA, full code and regular diet. PMH of heart murmur and appendectomy with no PPH. Pt has completed Subutex and Valium tapers and is preparing for discharge tomorrow morning. With last COWS 6 and CIWA 9, per NOC report. Pt was not administered any PRN medication on NOC, per report. Viscera Washer encounters pt in pts room Pt is A/O x4 and able to make needs known. Pt is calm and cooperative. Linear though process and clear speech pattern. Pt with complaints of stomach cramps, anxiety and restlessness. Bed in low position with wheels locked and side rails up x2. Will continue to monitor, support and encourage according to plan of care.
--- NOTE | 2017-10-08 08:00 | NUR ---
COWS 6/CIWA 7 Pt is anxious and restless, with complaints of body aches and nausea. Will continue to monitor, support and encourage according to plan of care.
[2017-10-08] MEDS: OLANZAPINE 5 MG TABLET PO SCH (08:06)
[2017-10-08] MEDS: FOLIC ACID 1 MG TABLET PO SCH (08:06)
[2017-10-08] MEDS: THIAMINE HCL 100 MG TABLET PO SCH (08:06)
[2017-10-08] MEDS: MULTIVITAMINS,THERAPEUTIC TABLET PO SCH (08:06)
[2017-10-08] MEDS: CLONIDINE HCL 0.1 MG TABLET PO PRN (08:06)
--- NOTE | 2017-10-08 08:06 | NUR ---
PRN Clonidine Pt's BP on routine VS check is 161/97. Genomics Scientist administered medication, with tolerating well. Will continue to monitor, support and encourage according to plan of care.
[2017-10-08 08:30] VITALS: BP 161/97
[2017-10-08] MEDS ORDERED: PHENOBARBITAL 60 MG TABLET PO SCH (09:00)
--- NOTE | 2017-10-08 09:15 | NUR ---
PRN Re-Assessment BP on re-check. 111/76 with P of 71. Medication effective. Will continue to monitor, support and encourage according to plan of care.
--- NOTE | 2017-10-08 12:00 | NUR ---
COWS 7/CIWA 8 Pt is anxious and restless. Tremulous. Will continue to monitor, support and encourage according to plan of care.
[2017-10-08 12:15] VITALS: BP 139/85
--- NOTE | 2017-10-08 16:00 | NUR ---
CIWA 9/COWS 7 Pt is anxious and restless, moist skin and complains of nausea. Will continue to monitor, support and encourage according to plan of care.
[2017-10-08 16:50] VITALS: BP 126/84
--- NOTE | 2017-10-08 19:07 | NUR ---
End of Shift Shellfish Shucker received report on 46 year old male admitted to [facility] on 09/29/17 for medical management of ETOH and Opiate withdrawals. Pt endorses NKA, full code and regular diet. PMH of heart murmur and appendectomy with no PPH. Pt has completed Subutex and Valium tapers and is preparing for discharge tomorrow morning. With last COWS 7 and CIWA 9 with complaints of nausea and chills. Pt is anxious and restless. Pt is able to focus on task and is calm and cooperative. Pt was administered Clonidine(HTN), medication effective. Bed in low position with wheels locked and side rails up x2.
--- NOTE | 2017-10-08 19:15 | NUR ---
Start of Shift Note: Patient is a 46 y.o male admitted on 09/29/17 for medically supervised withdrawal from ETOH and [place] use. Patient is alert & oriented x4. He appears anxious and irritable. He completed his Subutex taper and is scheduled to be discharged tomorrow. Pt received PRN Clonidine day shift and was effective per report. Last COWS 7 CIWA 9. Encourage pt to increase fluid intake. Educated pt of current plan of care for the night and medication regimen. All needs attended & met. Safety measures in place. Will continue to monitor patient.
[2017-10-08 20:00] VITALS: BP 140/88
[2017-10-08] MEDS: HYDROXYZINE PAMOATE 25 MG CAPSULE PO PRN (20:32)
[2017-10-08] MEDS: diphenhydrAMINE 50 MG CAPSULE PO PRN (20:32)
--- NOTE | 2017-10-08 20:32 | NUR ---
PRN Vistaril & Benadryl Patient is anxious and complains of unable to fall asleep. PRN Benadryl & Vistaril administered as ordered. Safety measures in place. Will continue monitor for effectiveness of medications.
--- NOTE | 2017-10-08 21:32 | NUR ---
PRN Reassessment Patient still awake at this time. Pt verbalized decreased in anxiety after 1 hour of medication administration. Pt in bed and appear calm and comfortable. Safety measures in place. WIll continue to monitor patient.
[2017-10-09] MEDS ORDERED: CLON0.1T14 PO (00:23)
[2017-10-09] MEDS ORDERED: LEVO50TA8 PO (00:23)
[2017-10-09] MEDS ORDERED: DIPH50CA37 PO (00:23)
[2017-10-09] MEDS ORDERED: MULT-24 PO (00:23)
[2017-10-09] MEDS: LEVOTHYROXINE SODIUM 50 MCG TABLET PO SCH (06:27)
--- NOTE | 2017-10-09 07:06 | NUR ---
Start of Shift Note: Continue to closely monitor patient. Patient remains alert & oriented x4. He continue to present with anxiety& irritability. He completed his Subutex & Valium taper and is scheduled to be discharged today. Pt received PRN Benadryl & Vistaril during my shift and were effective per report. Last COWS 5 CIWA 6. Pt remained stable and Vitals noted WNL. He slept for a total of 5 hours. Fluid intake 2500 ml, Voided 5x with 2x bowel movement. All needs attended. Safety measures in place. Will endorse pt to day shift nurse. Addendum: 10/09/17 at 0708 by GABRIELA COLEMAN RN ERROR: This is the End of shift
[2017-10-09 08:00] VITALS: BP 140/84
--- NOTE | 2017-10-09 08:07 | NUR ---
Start of shift Patient 46 y/o male admitted for medically supervised withdrawal of ETOH and opiates. Last COWS 5 and CIWA 6 at 2200. Pt completed 5 day Ativan and 4 day Subutex taper, and 4 day Valium taper. Pt for discharge today. He is going to [facility]. Pt presents with mild anxiety about discharge and expectations. Pt has flat affect and depress mood. Encouraged pt to attend group therapies/sessions to learn new coping skills to prevent relapse. Pt reports NKA, FULL CODE. All safety precautions in place. Call light within reach. Bed lowest lock position. Fall precautions. Will continue to monitor for withdrawal symptoms.
[2017-10-09] MEDS: THIAMINE HCL 100 MG TABLET PO SCH (08:28)
[2017-10-09] MEDS: FOLIC ACID 1 MG TABLET PO SCH (08:28)
[2017-10-09] MEDS: MULTIVITAMINS,THERAPEUTIC TABLET PO SCH (08:28)
[2017-10-09] MEDS ORDERED: PHENOBARBITAL 60 MG TABLET PO SCH (09:00)
--- NOTE | 2017-10-09 09:40 | NUR ---
Discharge Note Pt has been discharge from [facility]. Pt is in stable condition, VS WNL. Denies suicidal or homicidal ideations at this time. All documentation has been completed, paperwork signed and dated. Pt left will all his belongings and prescriptions. Pt has been discharged from [facility] on 10/09/17 at 0940. notified.
== END 2017-10-09 09:40 | disposition other institution (70) | DRG 895 ==
LOC: SRC 19:37
PROVIDERS: ADMIT Family Medicine Addiction Medicine; ATTEND Family Medicine Addiction Medicine
PROC: HZ2ZZZZ Detoxification Services for Substance Abuse Treatment (ICD-10-PCS; principal; 2017-09-29)
PROC: HZ41ZZZ Group Counseling for Substance Abuse Treatment, Behavioral (ICD-10-PCS; 2017-09-30)
DX: F10.232 Alcohol dependence with withdrawal with perceptual disturbance (principal); F11.23 Opioid dependence with withdrawal; Y90.9 Presence of alcohol in blood, level not specified
CPT/HCPCS: 36415; 70030-TC; 80307; 80346; 80353; 83690; 83735; 84443; 85025; 86580; 86592; 86705; 86803; 87340; 87806; A4663; G0480; J1200; J1630; J2060; J2358; J3411; Q0163